=== PATIENT | female | born 1980 | race Hispanic/Latino ===

== ENCOUNTER 2024-03-24 12:05 | Emergency (ER) | payer BC ==
[~2024-03-24] VITALS: Ht 157.5 cm; Wt 68.0 kg
[2024-03-24 12:42] LABS: BASOPHILS # (AUTO) 0.02 K/uL (0.00-0.20); BASOPHILS % (AUTO) 0.1 % (0.0-5.0); HEMATOCRIT 41.7 % (36-48); IMMATURE GRANULOCYTE ABSOLUTE 0.07 K/uL (0-1); LYMPHOCYTES # (AUTO) 1.1 K/uL (1.0-4.8); LYMPHOCYTES % (AUTO) 7.5 % (21.0-51.0); MEAN CORPUSCULAR HEMOGLOBIN 30.9 pg (27.0-33.0); MEAN CORPUSCULAR HGB CONC 34.3 g/dL (32.0-36.0); MEAN CORPUSCULAR VOLUME 90.1 fL (79-99); MONOCYTES # (AUTO) 0.3 K/uL (0.1-1.0); MONOCYTES % (AUTO) 2.1 % (3.0-13.0); NEUTROPHILS # (AUTO) 12.9 K/uL (1.8-7.7); NEUTROPHILS % (AUTO) 89.8 % (40.0-77.0); PLATELET COUNT (AUTO) 399 K/uL (130-400); RED BLOOD CELL COUNT(AUTO) 4.63 MIL/uL (4.00-5.50); RED CELL DISTRIBUTION WIDTH 13.2 % (11.0-15.5); WHITE BLOOD COUNT (AUTO) 14.4 K/uL (4.8-10.8)
[2024-03-24 12:52] LABS: CREATININE 0.6 mg/dL (0.5-1.0); POTASSIUM 3.9 mmol/L (3.5-5.1)
[2024-03-24 12:56] LABS: ALBUMIN 3.8 g/dL (3.5-5.0); BILIRUBIN,TOTAL 0.5 mg/dL (0.2-1.0); TOTAL PROTEIN, SERUM 8.3 g/dL (6.0-8.3)
[2024-03-24 13:53] LABS: ADD UA MICROSCOPIC YES; APPEARANCE,URINE CLOUDY (CLEAR); BILIRUBIN,URINE NEGATIVE (NEGATIVE); COLOR,URINE YELLOW (YELLOW); GLUCOSE, URINE (UA) NEGATIVE (NEGATIVE); KETONES,URINE 150 mg/dL (NEGATIVE); LEUKOCYTE ESTERASE ,URINE 250 Leu/uL (NEGATIVE); NITRATE,URINE NEGATIVE (NEGATIVE); OCCULT BLOOD,URINE SMALL (NEGATIVE); PROTEIN,URINE 30 mg/dL (NEGATIVE); UROBILINOGEN,URINE 0.2 mg/dL (0.2-1.0)
[2024-03-24 14:05] LABS: BACTERIA,URINE FEW /HPF (None Seen); MUCUS,URINE MOD LPF (None Seen); SQUAMOUS EPITHELIAL CELL,UR MANY /HPF (0-2)
[2024-03-24] MEDS: MAG/ALUM/SIMETH 30 ML UDCUP PO ONE (14:34)
[2024-03-24] MEDS: LIDOCAINE HCL 2% VISCOUS 15 ML UDCUP PO ONE (14:34)
[2024-03-24] MEDS: FAMOTIDINE 20MG VIAL IV STA (14:35)
[2024-03-24] MEDS: DICYCLOMINE HCL 10 MG/5 ML ML PO ONE (14:35)
[2024-03-24] MEDS: ONDANSETRON 4MG INJ IVP STA (14:35)
[2024-03-24] MEDS: 0.9%NACL 1000ML 1,000 ML IV STA (14:53)
[2024-03-24] MEDS ORDERED: ONDA-243 PO (15:15)
[2024-03-24] MEDS ORDERED: CEPH500B PO (15:15)
[2024-03-24] MEDS ORDERED: FAMO-136 PO (15:15)
[2024-03-24] MEDS: cefTRIAXone 1G VIAL IVPB STA (15:18)
[2024-03-24 15:35] VITALS: BP 121/78; PULSE 80; RESP 18; O2SAT 100
== END 2024-03-24 15:51 | disposition home or self-care (01) ==
LOC: EDH 12:05
DX: N39.0 Urinary tract infection, site not specified (principal); K52.9 Noninfective gastroenteritis and colitis, unspecified
CPT/HCPCS: 99284; 96374; 96375; 80053; 83690; 85025; 87086; 81001; 36415; 93005; J3490; J7030; J0696; J2405; 96361; 96365

== ENCOUNTER 2024-06-25 18:09 | Emergency (ER) | payer BC ==
[~2024-06-25] VITALS: Ht 157.5 cm; Wt 67.1 kg
[~2024-06-25 18:09] MED LIST: CEPH500B PO; FAMO-136 PO; ONDA-243 PO
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
[2024-06-25] MEDS: ibuPROFEN 600 MG TABLET PO ONE (18:50)
[2024-06-25] MEDS: dexaMETHasone SOD PHOSPHATE 4 MG/ML 1ML VIAL IM ONE (18:51)
[2024-06-25] MEDS ORDERED: IBUP-2070 PO (19:44)
[2024-06-25 19:48] VITALS: BP 130/58; PULSE 74; RESP 16; TEMP 98; O2SAT 97
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
== END 2024-06-25 19:55 | disposition home or self-care (01) ==
LOC: EDH 18:09
DX: M25.512 Pain in left shoulder (principal); V89.2XXA Person injured in unspecified motor-vehicle accident, traffic, initial encounter; Y93.89 Activity, other specified; Y92.89 Other specified places as the place of occurrence of the external cause; Y99.8 Other external cause status
CPT/HCPCS: 99284; 73030; 96372; J1100